=== PATIENT | female | born 1960 | race Caucasian/White ===

== ENCOUNTER 2018-12-29 02:07 | Inpatient (IN) | payer OTHER ==
[~2018-12-29] VITALS: Ht 165.1 cm; Wt 116.6 kg
--- NOTE | 2018-12-29 02:25 | NUR ---
PT BIBA WITH C/O SYNCOPAL EPISODE. PER REVIEWER SALES STS PT STARTED FEELING N/V/D ALL DAY LAST NIGHT. PT STS I WAS STARTING TO VOMIT IN BATHROOM AND THEN WOKE UP FACE FIRST ON FLOOR. PT NOTED WITH LARGE HEMATOMA WITH OPEN ABRASION TO FOREHEAD. PTS TOOTH APPEARS CHIPPED, PT STS MY TOOTH WAS ALREADY CHIPPED BUT IM NOT SURE IF ITS MORE CHIPPED. PT STS FEELING 8/10 HEAD PAIN AT THIS TIME. DENIES AND NECK OR BACK PAIN. REVIEWER SALES STS PTS BP EN ROUTE WAS 78/54, 300ML BOLUS GIVEN WITH EFFECTIVENESS, BP 135/80, BS 111, EKG SHOWED NSR. IV INSERTED TO LAC G 18, IV INTACT AND PATENT. PT ON FULL CM. WILL CONTINUE TO MONITOR.
--- NOTE | 2018-12-29 02:31 | NUR ---
PT TAKEN FOR CT [facility]IA [facility]
--- NOTE | 2018-12-29 02:40 | NUR ---
COOLING MEASURES PROVIDED FOR TEMP 100.7
--- NOTE | 2018-12-29 03:10 | NUR ---
DR PERKINS AT BEDSIDE FOR MSE.
--- NOTE | 2018-12-29 03:22 | NUR ---
LAB AT BEDSIDE
[2018-12-29 03:46] LABS: BASOPHIL % 0.2 % (0-2); PLATELET COUNT 168 x10^3mcL (130-400); RED CELL DISTRIBUTION WIDTH 14.4 % (11.5-14.5)
--- NOTE | 2018-12-29 03:46 | NUR ---
XRAY AT BEDSIDE
[2018-12-29 04:00] LABS: CALCIUM 8.4 mg/dL (8.5-10.1); CARBON DIOXIDE 28.1 mmol/L (21-32); CHLORIDE SERUM 103 mmol/L (98-107); CREATININE SERUM 0.9 mg/dL (0.6-1.0); GFR1 > 60 mL/min; GLUCOSE SERUM 119 mg/dL (74-106); SODIUM SERUM 139 mmol/L (136-145)
[2018-12-29 04:05] LABS: ALBUMIN 3.2 g/dL (3.4-5.0); ALKALINE PHOSPHATASE 64 U/L (46-116); ALT/SGPT 40 U/L (14-59); AST/SGOT 25 U/L (15-37); BILIRUBIN TOTAL 1.1 mg/dL (0.20-1.00); TOTAL PROTEIN, SERUM 6.4 g/dL (6.4-8.2)
[2018-12-29 04:08] LABS: microscopic required? NO
--- NOTE | 2018-12-29 04:09 | NUR ---
PTS TEMP 100.3, DR PERKINS MADE AWARE. STS WILL ORDER TYLENOL
[2018-12-29] MEDS ORDERED: HCTZ/TRIAMTEREN1 CA1 PO (04:20)
[2018-12-29] MEDS ORDERED: PAROXETINE HCL20 M1 GT (04:20)
[2018-12-29] MEDS ORDERED: SOTALOL HCL80 MG PO (04:21)
[2018-12-29 04:26] LABS: urine erythrocyte NEGATIVE (NEGATIVE)
--- NOTE | 2018-12-29 04:56 | NUR ---
REPORT GIVEN TO GARY OAKLEY TO ASSUME CARE.
--- NOTE | 2018-12-29 06:26 | NUR ---
REC'D PT FROM ED VIA [facility] ACCOMPANIED BY AND RN. PT AMBULATED FROM [place] TO BED BY SELF WITH STEADY GAIT. PT ADM FOR SYNCOPAL EPISODE IN BATHROOM. WOKE UP ON BATHROOM FLOOR. PT LOSS CONSCIOUSNESS. HEMATOMA NOTED TO FOREHEAD. ECCHYMOSIS TO BRIDGE OF NOTED. PT REPORTS TENDERNESS TO AREA BUT DENIES PAIN AT REST. PICTURE OBTAINTED. AAOX4, SPEECH CLEAR, FOLLOWS COMMANDS. TELE 9, NSR WITH DEPRESSED T. DENIES CP, DIZZINESS, OR PALPITATIONS. DENIES RESP DISTRESS OR SOB. BREATHING EVEN/UNLABORED ON 2L O2 VIA NC, SPO2 96%. NO EDEMA NOTED. ABD SOFT/ROUND. DENIES ABD PAIN, TENDERNESS, OR N/V. PT REPORTS HAVING N/V/D ALL DAY YESTERDAY. STATES HER DAUGHTER AND WERE ALSO HAVING N/V/D. REPORTS POOR APPETITE X2 DAYS. VOIDING FREELY. AMBULATORY. DENIES WEAKNESS. IV TO LAC FLUSHED AND PATENT, SITE WNL. ORIENTED TO DEVICES AND SURROUNDINGS. CALL LIGHT WITHIN REACH, BED AT LOWEST POSITION, BED ALARM ON. WILL CONTINUE TO MONITOR.
[2018-12-29 06:35] VITALS: BP 115/86
[2018-12-29 07:24] LABS: CHOLESTEROL/HDL RATIO 4.6; MAGNESIUM 1.6 mg/dL (1.8-2.4); PHOSPHOROUS 3.4 mg/dL (2.5-4.9)
[2018-12-29 07:25] LABS: T3 TOTAL 0.95 ng/mL
[2018-12-29 07:32] LABS: FREE T4 0.89 ng/dL (0.76-1.46); FREE THYROXINE INDEX 2.2 ug/dL (1.4-4.5)
--- NOTE | 2018-12-29 08:00 | NUR ---
ALERT AND ORIENTED BREATHING FREELY ON RA. RAISED RED BUMP ON FORHEAD, PURPLE AND RED AREAS TO ORBITS AND BRIDGE OF NOSE. DENIES PAIN,DIARRHEA OR NAUSEA AT THIS TIME. NO LIGHTHEADEDNESS OR DIZZINESS AT THIS TIME. TELE # 8 NSR. INDEPENDENT W ADL'S. CALL LIGHT WITHIN REACH.
[2018-12-29 08:16] VITALS: BP 105/58
[2018-12-29 09:25] LABS: AMPHETAMINE QUAL UR NONE DETECTED (See below)
[2018-12-29 11:33] VITALS: BP 121/72
[2018-12-29 15:45] VITALS: BP 124/71
--- NOTE | 2018-12-29 19:38 | NUR ---
SITTING UP IN BED FAMILY IN TO VISIT. NS INFUSING 100 CC HOUR. BRP. TYLENOL ADMIN PO FOR H/A. BRP. NO LIGHTHEADEDNESS OR DIZZINESS. ALER AND ORIENTED. BREATHING FREELY ON RA. CALL LIGHT WITHIN REACH.
--- NOTE | 2018-12-29 19:40 | NUR ---
PT SEEN, RESTING IN BED, ALERT AND ORIENTED X 4 AND VERY VERBALLY RESPONSIVE, DENIES HEADACHE OR DIZZINESS AT THIS TIME, HAD SYNCOPE EPISODE AT HOME, BREATHING EVEN AND UNLABORED, LUNG SOUNDS CLEAR, ON ROOM AIR WITH NO RESP DISTRESS NOTED, ON TELE#9 NSR, DENIES CHEST PAIN, IVF INFUSING WELL, PULSES PALPABLE, NO EDEMA NOTED, SCD TO BLE, AMBULATORY WITH STEADY GAIT, FALL PRECAUTION IN PLACE, CLUTTER FREE ENVIRONMENT MAINTAINED, ABD OBESE WITH ACTIVE BS, NO BM AT THIS TIME, NO N&V NOTED, VOIDING FREELY, NO DISTRESS NOTED, WILL KEEP TO MONITOR.
[2018-12-29 20:50] VITALS: BP 116/49
[2018-12-29 21:39] VITALS: Ht 165.1 cm; Wt 116.6 kg
--- NOTE | 2018-12-30 00:30 | NUR ---
ROUNDS MADE, PT ASLEEP BUT EASILY AROUSALE, BREATHING EVEN AND UNLABORED, NO SOB OR RESP DISTRESS NOTED, WILL KEEP TO MONITOR.
--- NOTE | 2018-12-30 05:43 | NUR ---
PT AWAKE AND RESTING IN BED, SLEPT ON AND OFF WHOLE NIGHT, IVF INFUSING WELL, DENIES HEADACHE OR DIZZINESS, BREATHING EVEN AND UNLABORED ON ROOM AIR, ON TELE#9 NSR, DENIES CHEST PAIN OR SYNCOPE EPISODE, NO DISTRESS NOTED, WILL KEEP TO MONITOR.
[2018-12-30 05:58] VITALS: BP 125/70
[2018-12-30 06:58] LABS: BASOPHIL % 0.7 % (0-2); PLATELET COUNT 144 x10^3mcL (130-400); RED CELL DISTRIBUTION WIDTH 14.1 % (11.5-14.5)
--- NOTE | 2018-12-30 07:15 | NUR ---
RECEIVED BEDSIDE REPORT FROM GRANTS ADMINISTRATOR NURSE AT THIS TIME. PATIENT RESTING COMFORTABLY IN BED. NO APPARENT DISTRESS OF DISCOMFORT NOTED. BREATHING EVEN AND UNLABORED. NO RESPIRATORY DISTRESS OR DISCOMFORT NOTED. NO INDICATION OF SHORTNESS OF BREATH. NO INDICATION OF CHEST PAIN/PRESSURE. ECHYMOSIS NOTED TO FOREHEAD/NOSE/PERIORBITAL. IV PATENT AND INTACT. ALL QUESTIONS AND CONCERNS ADDRESSED. ALL NEEDS ATTENDED TO. WILL CONTINUE TO MONITOR
[2018-12-30 07:20] LABS: CALCIUM 8.2 mg/dL (8.5-10.1); CARBON DIOXIDE 29.7 mmol/L (21-32); CHLORIDE SERUM 107 mmol/L (98-107); CREATININE SERUM 0.7 mg/dL (0.6-1.0); GFR1 > 60 mL/min; GLUCOSE SERUM 101 mg/dL (74-106); MAGNESIUM 1.9 mg/dL (1.8-2.4); PHOSPHOROUS 2.4 mg/dL (2.5-4.9); POTASSIUM SERUM 3.3 mmol/L (3.5-5.1); SODIUM SERUM 144 mmol/L (136-145)
--- NOTE | 2018-12-30 07:22 | NUR ---
BEDSIDE HANDOFF REPORT DONE WITH CRISSY, ALL QUESTIONS ANSWERED AND CONCERNS ADDRESSED.
--- NOTE | 2018-12-30 08:44 | NUR ---
REPORTED TO PUBLIC OPINION SURVEY TAKER MAIN THAT PATIENT WBC 3.3 AT THIS TIME. PER PUBLIC OPINION SURVEY TAKER MAIN, NO CHANGE IN ORDERS AT THIS TIME. ALL QUESTIONS AND CONCERNS ADDRESSED. ALL NEEDS ATTENDED TO. WILL CONTINUE TO MONITOR
[2018-12-30 09:10] VITALS: BP 114/62
--- NOTE | 2018-12-30 10:09 | NUR ---
ALL MORNING MEDICATIONS ADMINISTERED. PATIENT TOLERATED WELL. NO ADVERSE EFFECTS NOTED. ALL NEEDS ATTENDED TO. WILL CONTINUE TO MONITOR
[2018-12-30 10:53] VITALS: BP 114/62
--- NOTE | 2018-12-30 10:55 | NUR ---
SPOKE TO [facility] WORKER MAIN AT THIS TIME REGARDING STOOL CULTURE AND HOW PATIENT HAS NOT HAD A BOWEL MOVEMENT YET. PER MAIN, OK TO SEND PATIENT HOME WITHOUT STOOL CULTURE AT THIS TIME. ALL QUESTIONS AND CONCERNS ADDRESSED. ALL NEEDS ATTENDED TO. WILL CONTINUE TO MONITOR
--- NOTE | 2018-12-30 12:00 | NUR ---
PATIENT STABLE TO BE DISCHARGED TO HOME. DISCHARGE INSTRUCTIONS GIVEN WELL EDUCATION. INSTRUCTED PATIENT ABOUT FOLLOW UP APPOINTMENT. PATIENT VERBALIZES UNDERSTANDING. IV REMOVED WITH CATH INTACT. ID BANDS REMOVED. TELE MONITOR REMOVED AND RETURNED TO SCANNING TECH. ALL BELONGINGS WITH PATIENT. ALL QUESTIONS AND CONCERNS ADDRESSED. ALL NEEDS ATTENDED TO. ESCORTED DOWN TO THE LOBBY BY [facility] AT THIS TIME.
== END 2018-12-30 12:00 | disposition home or self-care (01) | DRG 74 ==
LOC: ED 02:07 → DU 04:37
PROVIDERS: Emergency Medicine; ADMIT Internal Medicine
DX: G90.8 Other disorders of autonomic nervous system (principal); Z68.41 Body mass index [BMI] 40.0-44.9, adult; E44.1 Mild protein-calorie malnutrition; S05.12XA Contusion of eyeball and orbital tissues, left eye, initial encounter; S05.11XA Contusion of eyeball and orbital tissues, right eye, initial encounter; E86.0 Dehydration; I10 Essential (primary) hypertension; F41.1 Generalized anxiety disorder; E83.42 Hypomagnesemia; I48.0 Paroxysmal atrial fibrillation; K52.9 Noninfective gastroenteritis and colitis, unspecified; W18.39XA Other fall on same level, initial encounter; Y93.89 Activity, other specified; Y92.012 Bathroom of single-family (private) house as the place of occurrence of the external cause; Z91.048 Other nonmedicinal substance allergy status; Z90.49 Acquired absence of other specified parts of digestive tract; Z98.891 History of uterine scar from previous surgery; Z90.710 Acquired absence of both cervix and uterus
CPT/HCPCS: 83880; 84439; 87046; 87046-59; G0378; J7030; Q0092